=== PATIENT | male | born 1945 | race Caucasian/White ===

== ENCOUNTER 2019-02-24 10:24 | Emergency (ER) | payer MEDICARE, MEDICAID ==
[~2019-02-24] VITALS: Ht 185.4 cm; Wt 117.3 kg
[~2019-02-24 10:24] MED LIST: ALBU8HFA PO
[2019-02-24 10:51] VITALS: BP 196/96
[2019-02-24] MEDS ORDERED: orphenadrine citrate 60mg/2ml inj. IM ONE (12:15)
[2019-02-24] MEDS ORDERED: ketorolac tromethamine 15mg/ml inj. IM ONE (12:15)
[2019-02-24] MEDS ORDERED: METH-360 PO (12:16)
[2019-02-24] MEDS ORDERED: IBUP-1985 PO (12:16)
== END 2019-02-24 13:06 | disposition home or self-care (01) ==
LOC: ER 10:25
DX: M54.41 Lumbago with sciatica, right side (principal); G89.29 Other chronic pain; I25.10 Atherosclerotic heart disease of native coronary artery without angina pectoris; I10 Essential (primary) hypertension; Z95.1 Presence of aortocoronary bypass graft
CPT/HCPCS: 96372; 99283; J1885; J2360

== ENCOUNTER 2019-11-21 12:23 | Emergency (ER) | payer MEDICARE, MEDICAID ==
[~2019-11-21] VITALS: Ht 185.4 cm; Wt 115.5 kg
[~2019-11-21 12:23] MED LIST changes: +IBUP-1985 PO; +METH-360 PO
[2019-11-21 13:02] LABS: BASOPHILS # (AUTO) 0.1 X10'3 (0-0.2); BASOPHILS % (AUTO) 1.3 % (0-1); EOSINOPHILS # (AUTO) 0.4 X10'3 (0-0.9); EOSINOPHILS % (AUTO) 5.3 % (0-6); HEMATOCRIT 47.6 % (42.0-52.0); HEMOGLOBIN 15.9 g/dl (14.0-17.9); LYMPHOCYTES # (AUTO) 1.3 X10'3 (1.1-4.8); LYMPHOCYTES % (AUTO) 18.1 % (21-51); MEAN CORPUSCULAR HEMOGLOBIN 29.9 PG (27.0-31.0); MEAN CORPUSCULAR HGB CONC 33.5 g/dL (33.0-36.5); MEAN CORPUSCULAR VOLUME 89.2 FL (78-98); MEAN PLATELET VOLUME 9.3 FL (7.4-10.4); MONOCYTES # (AUTO) 0.5 X10'3 (0-0.9); MONOCYTES % (AUTO) 7.6 % (2-12); NEUTROPHILS # (AUTO) 4.7 X10'3 (1.8-7.7); NEUTROPHILS % (AUTO) 67.7 % (42-75); PLATELET COUNT 246 X10'3 (140-440); RED BLOOD COUNT 5.33 X10'6 (4.70-6.10); RED CELL DISTRIBUTION WIDTH 14.2 % (11.5-14.5)
[2019-11-21 13:16] LABS: ALANINE AMINOTRANSFERASE 42 U/L (12-78); ALBUMIN 4.1 G/DL (3.4-5.0); ALBUMIN/GLOBULIN RATIO 1.1 (1.1-1.5); ALKALINE PHOSPHATASE 107 IU/L (46-116); ANION GAP 4 (8-16); ASPARTATE AMINO TRANSFERASE 24 U/L (10-37); BILIRUBIN,TOTAL 0.8 MG/DL (0.1-1.0); BLOOD UREA NITROGEN 17 MG/DL (7-18); BUN/CREATININE RATIO 15.7 (5.4-32.0); CALCIUM 8.7 MG/DL (8.5-10.1); CHLORIDE 108 MMOL/L (99-107); CREATININE 1.08 MG/DL (0.60-1.10); GLUCOSE 115 MG/DL (70-104); POTASSIUM 4.5 MMOL/L (3.5-5.1); SODIUM 142 MMOL/L (135-145); TOTAL CARBON DIOXIDE 29.7 MMOL/L (24-32); TOTAL PROTEIN 7.7 G/DL (6.4-8.2); eGFR 67 ML/MIN
[2019-11-21] MEDS ORDERED: cloNIDine 0.1 mg tablet PO ONE (14:05)
[2019-11-21 15:21] VITALS: BP 179/108
== END 2019-11-21 15:38 | disposition home or self-care (01) ==
LOC: ER 12:24
DX: I10 Essential (primary) hypertension (principal); I44.0 Atrioventricular block, first degree; R00.2 Palpitations; I25.10 Atherosclerotic heart disease of native coronary artery without angina pectoris; Z98.890 Other specified postprocedural states; Z79.899 Other long term (current) drug therapy
CPT/HCPCS: 36415; 71045; 80053; 83880; 84484; 85025; 93005; 99285

== ENCOUNTER → 2020-08-02 | Emergency (ER) | payer MEDICARE, MEDICAID ==
[~2020-08-02] VITALS: Ht 185.4 cm; Wt 104.5 kg
[2020-08-02 03:13] VITALS: BP 207/101
[2020-08-02 04:23] LABS: BASOPHILS # (AUTO) 0.1 X10'3 (0-0.2); BASOPHILS % (AUTO) 1.2 % (0-1); EOSINOPHILS # (AUTO) 0.5 X10'3 (0-0.9); EOSINOPHILS % (AUTO) 5.8 % (0-6); HEMATOCRIT 44.8 % (42.0-52.0); HEMOGLOBIN 15.1 g/dl (14.0-17.9); LYMPHOCYTES # (AUTO) 1.5 X10'3 (1.1-4.8); LYMPHOCYTES % (AUTO) 17.9 % (21-51); MEAN CORPUSCULAR HEMOGLOBIN 30.1 PG (27.0-31.0); MEAN CORPUSCULAR HGB CONC 33.7 g/dL (33.0-36.5); MEAN CORPUSCULAR VOLUME 89.2 FL (78-98); MEAN PLATELET VOLUME 9.5 FL (7.4-10.4); MONOCYTES # (AUTO) 0.7 X10'3 (0-0.9); MONOCYTES % (AUTO) 8.7 % (2-12); NEUTROPHILS # (AUTO) 5.7 X10'3 (1.8-7.7); NEUTROPHILS % (AUTO) 66.4 % (42-75); PLATELET COUNT 270 X10'3 (140-440); RED BLOOD COUNT 5.02 X10'6 (4.70-6.10); RED CELL DISTRIBUTION WIDTH 14.5 % (11.5-14.5); WHITE BLOOD COUNT 8.6 X10'3 (4.5-11.0)
[2020-08-02 04:24] LABS: ALANINE AMINOTRANSFERASE 37 U/L (12-78); ALBUMIN 3.8 G/DL (3.4-5.0); ALBUMIN/GLOBULIN RATIO 1.1 (1.1-1.5); ALKALINE PHOSPHATASE 104 IU/L (46-116); ANION GAP 7 (8-16); ASPARTATE AMINO TRANSFERASE 19 U/L (10-37); BILIRUBIN,TOTAL 0.4 MG/DL (0.1-1.0); BLOOD UREA NITROGEN 26 MG/DL (7-18); CALCIUM 8.7 MG/DL (8.5-10.1); CHLORIDE 107 MMOL/L (99-107); GLUCOSE 150 MG/DL (70-104); LIPASE 197 U/L (73-393); POTASSIUM 4.1 MMOL/L (3.5-5.1); SODIUM 143 MMOL/L (135-145); TOTAL CARBON DIOXIDE 28.6 MMOL/L (24-32); TOTAL PROTEIN 7.2 G/DL (6.4-8.2); eGFR 73 ML/MIN
[2020-08-02 05:12] LABS: CLARITY,URINE CLEAR (Clear); COLOR,URINE YELLOW (Yellow); GLUCOSE, URINE NEGATIVE (Neg); KETONES,URINE NEGATIVE (Neg); LEUKOCYTE ESTERASE ,URINE NEGATIVE (Neg); NITRITES, URINE NEGATIVE (Neg); OCCULT BLOOD,URINE NEGATIVE (Neg); PROTEIN,URINE NEGATIVE (Neg); UROBILINOGEN,URINE 0.2 E.U/dL (0.2-1.0)
[2020-08-02 05:18] LABS: UA COLLECTION TYPE CLN CATCH MIDSTREAM
== END | disposition home or self-care (01) ==
LOC: ER 03:09
DX: R10.31 Right lower quadrant pain (principal); R11.2 Nausea with vomiting, unspecified; I25.10 Atherosclerotic heart disease of native coronary artery without angina pectoris; I10 Essential (primary) hypertension; Z95.1 Presence of aortocoronary bypass graft; Z98.890 Other specified postprocedural states; Z79.899 Other long term (current) drug therapy
CPT/HCPCS: 36415; 74176; 80053; 81003; 83690; 85025; 99284

== ENCOUNTER 2021-09-21 00:43 | Emergency (ER) | payer MEDICARE, MEDICAID ==
[~2021-09-21] VITALS: Ht 185.4 cm; Wt 116.4 kg
[~2021-09-21 00:43] MED LIST changes: +METH-797 PO; +ONDA4TAB6 PO
[2021-09-21] MEDS ORDERED: METO100T14 PO (01:22)
[2021-09-21] MEDS ORDERED: CLON0.1T2 PO (01:22)
[2021-09-21] MEDS ORDERED: PRAV40TA3 PO (01:22)
[2021-09-21] MEDS ORDERED: ENAL-79 PO (01:22)
[2021-09-21 02:00] LABS: BASOPHILS # (AUTO) 0.1 X10'3 (0-0.2); BASOPHILS % (AUTO) 1.3 % (0-1); D-DIMER 0.64 MG/L FEU (0-0.50); EOSINOPHILS # (AUTO) 0.5 X10'3 (0-0.9); EOSINOPHILS % (AUTO) 6.4 % (0-6); HEMOGLOBIN 16.6 g/dl (14.0-17.9); LYMPHOCYTES % (AUTO) 26.3 % (21-51); MEAN CORPUSCULAR HEMOGLOBIN 30.5 PG (27.0-31.0); MEAN CORPUSCULAR HGB CONC 34.6 g/dL (33.0-36.5); MEAN CORPUSCULAR VOLUME 88.2 FL (78-98); MEAN PLATELET VOLUME 9.1 FL (7.4-10.4); MONOCYTES # (AUTO) 0.6 X10'3 (0-0.9); MONOCYTES % (AUTO) 8.1 % (2-12); NEUTROPHILS # (AUTO) 4.3 X10'3 (1.8-7.7); NEUTROPHILS % (AUTO) 57.9 % (42-75); PLATELET COUNT 260 X10'3 (140-440); RED BLOOD COUNT 5.45 X10'6 (4.70-6.10); RED CELL DISTRIBUTION WIDTH 14.7 % (11.5-14.5); WHITE BLOOD COUNT 7.4 X10'3 (4.5-11.0)
[2021-09-21 02:04] LABS: ALANINE AMINOTRANSFERASE 38 U/L (12-78); ALBUMIN 4.2 G/DL (3.4-5.0); ALBUMIN/GLOBULIN RATIO 1.2 (1.1-1.5); ALKALINE PHOSPHATASE 108 IU/L (46-116); ANION GAP 7 (8-16); ASPARTATE AMINO TRANSFERASE 23 U/L (10-37); BILIRUBIN,TOTAL 0.7 MG/DL (0.1-1.0); BLOOD UREA NITROGEN 15 MG/DL (7-18); BUN/CREATININE RATIO 14.9 (5.4-32.0); CALCIUM 8.4 MG/DL (8.5-10.1); CHLORIDE 104 MMOL/L (99-107); CREATININE 1.01 MG/DL (0.60-1.10); GLUCOSE 148 MG/DL (70-104); POTASSIUM 3.5 MMOL/L (3.5-5.1); SODIUM 141 MMOL/L (135-145); TOTAL CARBON DIOXIDE 30.2 MMOL/L (24-32); TOTAL PROTEIN 7.7 G/DL (6.4-8.2); eGFR 72 ML/MIN
[2021-09-21 02:53] VITALS: BP 190/100
== END 2021-09-21 02:54 | disposition home or self-care (01) ==
LOC: ER 00:44
DX: R00.2 Palpitations (principal); Z20.822 Contact with and (suspected) exposure to COVID-19; I49.9 Cardiac arrhythmia, unspecified; I10 Essential (primary) hypertension; R06.02 Shortness of breath; I25.10 Atherosclerotic heart disease of native coronary artery without angina pectoris; Z98.890 Other specified postprocedural states; Z79.899 Other long term (current) drug therapy
CPT/HCPCS: 36415; 71045; 80053; 83880; 84484; 85025; 85379; 87635; 93005; 99285; C9803

== ENCOUNTER 2023-02-08 02:10 | Emergency (ER) | payer MEDICARE, MEDICAID ==
[~2023-02-08] VITALS: Ht 185.4 cm; Wt 98.6 kg
[~2023-02-08 02:10] MED LIST changes: +CLON0.1T2 PO; +ENAL-79 PO; -IBUP-1985 PO; -METH-360 PO; -METH-797 PO; +METO100T14 PO; -ONDA4TAB6 PO; +PRAV40TA3 PO
[2023-02-08] MEDS ORDERED: ondansetron/PF 4mg/2ml inj IV ONE (03:40)
[2023-02-08] MEDS ORDERED: famotidine/PF 10 mg/ml inj IV ONE (03:40)
[2023-02-08] MEDS ORDERED: acetaminophen 325mg tablet PO ONE (03:40)
[2023-02-08 04:19] LABS: BASOPHILS # (AUTO) 0.1 X10'3 (0-0.2); EOSINOPHILS # (AUTO) 0.3 X10'3 (0-0.9); EOSINOPHILS % (AUTO) 5.2 % (0-6); HEMATOCRIT 43.9 % (42.0-52.0); HEMOGLOBIN 14.7 g/dl (14.0-17.9); LYMPHOCYTES # (AUTO) 0.3 X10'3 (1.1-4.8); LYMPHOCYTES % (AUTO) 6.3 % (21-51); MEAN CORPUSCULAR HGB CONC 33.4 g/dL (33.0-36.5); MEAN CORPUSCULAR VOLUME 89.8 FL (78-98); MEAN PLATELET VOLUME 8.9 FL (7.4-10.4); MONOCYTES # (AUTO) 0.7 X10'3 (0-0.9); MONOCYTES % (AUTO) 14.1 % (2-12); NEUTROPHILS # (AUTO) 3.7 X10'3 (1.8-7.7); NEUTROPHILS % (AUTO) 72.4 % (42-75); PLATELET COUNT 205 X10'3 (140-440); RED BLOOD COUNT 4.89 X10'6 (4.70-6.10); RED CELL DISTRIBUTION WIDTH 14.4 % (11.5-14.5); WHITE BLOOD COUNT 5.1 X10'3 (4.5-11.0)
[2023-02-08 04:27] LABS: ALANINE AMINOTRANSFERASE 46 U/L (12-78); ALBUMIN 4.1 G/DL (3.4-5.0); ALBUMIN/GLOBULIN RATIO 1.2 (1.1-1.5); ALKALINE PHOSPHATASE 99 IU/L (46-116); ANION GAP 10 (8-16); ASPARTATE AMINO TRANSFERASE 27 U/L (10-37); BILIRUBIN,TOTAL 0.7 MG/DL (0.1-1.0); BLOOD UREA NITROGEN 16 MG/DL (7-18); BUN/CREATININE RATIO 14.2 (10.0-20.0); CALCIUM 8.9 MG/DL (8.5-10.1); CHLORIDE 104 MMOL/L (99-107); CREATININE 1.13 MG/DL (0.60-1.10); GLUCOSE 163 MG/DL (70-104); POTASSIUM 4.3 MMOL/L (3.5-5.1); SODIUM 143 MMOL/L (135-145); TOTAL PROTEIN 7.5 G/DL (6.4-8.2); eCRCL 63 ML/MIN; eGFR 63 ML/MIN
[2023-02-08 04:35] LABS: PRO BRAIN NATRIURETIC PEPTIDE 447 PG/ML (0-450)
[2023-02-08] MEDS ORDERED: ONDA8TAB13 PO (05:14)
[2023-02-08] MEDS ORDERED: NIRM1TAB PO (05:14)
[2023-02-08 05:27] VITALS: BP 147/79; PULSE 96; RESP 18; TEMP 98.4; O2SAT 95
== END 2023-02-08 05:29 | disposition home or self-care (01) ==
LOC: ER 02:10
DX: U07.1 COVID-19 (principal); I10 Essential (primary) hypertension; Z79.899 Other long term (current) drug therapy
CPT/HCPCS: 36415; 71045; 80053; 83880; 84484; 85025; 87811; 93005; 96374; 96375; 99285; J2405; J3490

== ENCOUNTER 2023-02-09 21:15 | Emergency (ER) | payer MEDICARE, MEDICAID ==
[~2023-02-09] VITALS: Ht 185.4 cm; Wt 109.1 kg
[~2023-02-09 21:15] MED LIST changes: +NIRM1TAB PO; +ONDA8TAB13 PO
[2023-02-09 21:38] VITALS: BP 171/99; PULSE 65; RESP 18; O2SAT 95
[2023-02-09] MEDS ORDERED: acetaminophen 325mg tablet PO STA (21:40)
[2023-02-09 22:33] VITALS: TEMP 98.8
== END 2023-02-09 22:40 | disposition home or self-care (01) ==
LOC: ER 21:16
DX: U07.1 COVID-19 (principal); I11.0 Hypertensive heart disease with heart failure; Z79.899 Other long term (current) drug therapy
CPT/HCPCS: 99282

== ENCOUNTER 2023-02-12 09:35 | Emergency (ER) | payer MEDICARE, MEDICAID ==
[~2023-02-12] VITALS: Ht 185.4 cm; Wt 100.4 kg
[2023-02-12 10:20] VITALS: BP 169/87; PULSE 61; RESP 18; TEMP 97.2; O2SAT 94
[2023-02-12] MEDS ORDERED: AZIT-164 PO (11:18)
[2023-02-12] MEDS ORDERED: DEC4T PO (11:18)
== END 2023-02-12 11:27 | disposition home or self-care (01) ==
LOC: ER 09:36
DX: J20.9 Acute bronchitis, unspecified (principal); I10 Essential (primary) hypertension; Z79.899 Other long term (current) drug therapy
CPT/HCPCS: 71045; 99283

== ENCOUNTER 2023-02-18 22:51 | Emergency (ER) | payer MEDICARE, MEDICAID ==
[~2023-02-18] VITALS: Ht 185.4 cm; Wt 111.7 kg
[~2023-02-18 22:51] MED LIST changes: +AZIT-164 PO; +DEC4T PO
--- NOTE | 2023-02-18 23:20 | NUR ---
MSE COMPLETE PT ROOMED
[2023-02-18] MEDS ORDERED: ketorolac tromethamine 15mg/ml inj. IM ONE (23:25)
[2023-02-18] MEDS ORDERED: dextrose 5%-1/2 normal saline 1,000 ML IV ONE (23:25)
[2023-02-18] MEDS ORDERED: ondansetron/PF 4mg/2ml inj IV ONE (23:25)
[2023-02-18] MEDS ORDERED: morphine 4 MG/ML inj SYRINge IV ONE (23:25)
[2023-02-18] MEDS ORDERED: acetaminophen 325mg tablet PO ONE (23:25)
[2023-02-18] MEDS ORDERED: pantoprazole 40 MG vial IV ONE (23:25)
[2023-02-18 23:42] LABS: BILIRUBIN,URINE NEGATIVE (Neg); CLARITY,URINE CLEAR (Clear); COLOR,URINE YELLOW (Yellow); GLUCOSE, URINE NEGATIVE (Neg); KETONES,URINE NEGATIVE (Neg); LEUKOCYTE ESTERASE ,URINE NEGATIVE (Neg); NITRITES, URINE NEGATIVE (Neg); OCCULT BLOOD,URINE NEGATIVE (Neg); PROTEIN,URINE NEGATIVE (Neg)
[2023-02-18 23:47] LABS: BASOPHILS % (AUTO) 0.2 % (0-1); EOSINOPHILS # (AUTO) 0.3 X10'3 (0-0.9); HEMATOCRIT 50.2 % (42.0-52.0); HEMOGLOBIN 16.8 g/dl (14.0-17.9); LYMPHOCYTES # (AUTO) 1.7 X10'3 (1.1-4.8); LYMPHOCYTES % (AUTO) 13.4 % (21-51); MEAN CORPUSCULAR HEMOGLOBIN 29.5 PG (27.0-31.0); MEAN CORPUSCULAR HGB CONC 33.5 g/dL (33.0-36.5); MEAN CORPUSCULAR VOLUME 88.1 FL (78-98); MONOCYTES # (AUTO) 1.7 X10'3 (0-0.9); NEUTROPHILS # (AUTO) 9.2 X10'3 (1.8-7.7); NEUTROPHILS % (AUTO) 71.4 % (42-75); PLATELET COUNT 295 X10'3 (140-440); RED CELL DISTRIBUTION WIDTH 14.4 % (11.5-14.5); WHITE BLOOD COUNT 12.9 X10'3 (4.5-11.0)
[2023-02-18 23:49] LABS: UA COLLECTION TYPE CLN CATCH MIDSTREAM
[2023-02-18 23:59] LABS: ALANINE AMINOTRANSFERASE 150 U/L (12-78); ALBUMIN 3.5 G/DL (3.4-5.0); ALKALINE PHOSPHATASE 83 IU/L (46-116); ANION GAP 5 (8-16); ASPARTATE AMINO TRANSFERASE 34 U/L (10-37); BILIRUBIN,TOTAL 0.6 MG/DL (0.1-1.0); BLOOD UREA NITROGEN 27 MG/DL (7-18); CALCIUM 8.5 MG/DL (8.5-10.1); CHLORIDE 104 MMOL/L (99-107); CREATININE 0.93 MG/DL (0.60-1.10); GLUCOSE 159 MG/DL (70-104); POTASSIUM 3.7 MMOL/L (3.5-5.1); SODIUM 140 MMOL/L (135-145); TOTAL CARBON DIOXIDE 30.6 MMOL/L (24-32); TOTAL PROTEIN 7.1 G/DL (6.4-8.2); eCRCL 76 ML/MIN; eGFR 79 ML/MIN
[2023-02-19] LABS: URINE AMPHETAMINE SCREEN NEGATIVE (Neg); URINE BARBITUATE SCREEN NEGATIVE (Neg); URINE BENZODIAZEPINES SCREEN NEGATIVE (Neg); URINE CANNABINOID SCREEN NEGATIVE (Neg); URINE COCAINE SCREEN NEGATIVE (Neg); URINE METHADONE SCREEN NEGATIVE (Neg); URINE OPIATE SCREEN NEGATIVE (Neg); URINE PHENCYCLIDINE SCREEN NEGATIVE (Neg)
[2023-02-19] MEDS ORDERED: iohexol 300mg/ml 100ml inj. ONE (00:07)
[2023-02-19 00:10] LABS: CREATINE KINASE 69 U/L (39-308); ETHANOL < 10 MG/DL (<10); LIPASE 359 U/L (16-77); MAGNESIUM 2.4 MG/DL (1.5-2.4)
--- NOTE | 2023-02-19 00:27 | NUR ---
ultrasound at bedside.
--- NOTE | 2023-02-19 03:20 | NUR ---
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 INFORMED PATIENT WE ARE STILL WAITING FOR RESULTS, VERBALIZED UNDERSTANDING. PATIENT AGREES TO WAIT. AT BEDSIDE, DENIES NEEDS. CALL LIGHT WITHIN REACH.
[2023-02-19] MEDS ORDERED: pantoprazole 40MG/NS 100ML BAG 100 ML IV ONE (03:40)
--- NOTE | 2023-02-19 04:29 | NUR ---
Patient does not want to be attatched to monitors, nor does he want to be attatched to maintenance fluids while trying to sleep. is at bedside. Pt is rousable, warm and dry to the touch with even, non labored respirations.
--- NOTE | 2023-02-19 06:48 | NUR ---
Received pt sitting at bedside, not attached to monitors. Awaiting results of CT scan. at bedside. Pt alert and oriented able to verbalize needs.
[2023-02-19 06:50] VITALS: TEMP 98.4
--- NOTE | 2023-02-19 07:20 | NUR ---
RN CALLED CT AND SPOKE WITH BRANDON. PER BRANDON 1ST RAD GROUP HAS BEEN PAGED 7 TIMES WITH NO RESULTS SO SHE HAS PAGED A 2ND GROUP TO HAVE DICTATION. RN WILL CONT TO MONITOR.
[2023-02-19 08:50] LABS: APTT 24 SECONDS (22-32); INR 1.1 INR; PROTHROMBIN TIME 11.4 SECONDS (9.0-12.0)
--- NOTE | 2023-02-19 09:25 | NUR ---
Per okay for pts to give home medications. Pt remains alert and oriented. Updated regarding status for possible admission.
[2023-02-19] MEDS ORDERED: ONDA4TAB12 PO (09:52)
[2023-02-19 10:01] VITALS: BP 146/89; PULSE 57; RESP 18; O2SAT 97
== END 2023-02-19 10:04 | disposition home or self-care (01) ==
LOC: ER 22:52
DX: K85.90 Acute pancreatitis without necrosis or infection, unspecified (principal)
CPT/HCPCS: 36415; 71045; 74177; 76700; 80053; 80305; 80320; 81003; 82550; 83605; 83690; 83735; 84484; 85025; 85610; 85730; 87040; 93005; 96365; 96366; 96372; 96375; 99285; C9113; J1885; J2270; J2405; J3490; Q9967